=== PATIENT | female | born 1975 | race Caucasian/White ===

== ENCOUNTER 2017-09-18 05:29 | Day surgery (SDC) | payer BC ==
[2017-09-15 16:12] VITALS: BMI 33.7
[~2017-09-18] VITALS: Ht 157.5 cm; Wt 83.4 kg
[2017-09-18] VITALS (12 sets, daily range): BP systolic 103–139; BP diastolic 52–70; PULSE 84–107; RESP 12–20; Ht 157.5 cm; Wt 83.4 kg
[~2017-09-18 05:29] MED LIST: GLIP-95 PO; LISI-313 PO; MTF1000T PO; PRAV20TA63 PO
[2017-09-18] MEDS ORDERED: FENTAnyl 50 MCG/ML VIAL IV PRN ×2 (06:30)
[2017-09-18] MEDS ORDERED: ONDANSETRON 4 MG INJ IV PRN (06:30)
[2017-09-18] MEDS ORDERED: EPHEDrine SULFATE 50 MG/5 ML SYG IV PRN (06:30)
[2017-09-18] MEDS ORDERED: HYDROmorphONE (0.2 MG/ML) 10ML SYG IV PRN (06:30)
[2017-09-18] MEDS ORDERED: LABETALOL HCL 20MG INJ IV PRN (06:30)
[2017-09-18] MEDS ORDERED: MIDAZOLAM 1 MG/ML 2 ML INJ IV PRN (06:30)
[2017-09-18] MEDS ORDERED: hydrALAzine 20 MG INJ IV PRN (06:30)
[2017-09-18] MEDS ORDERED: morphine (1 MG/ML) 10ML SYRINGE IV PRN ×3 (06:30)
[2017-09-18] MEDS ORDERED: ATROPINE 1 MG/10 ML SYRINGE IV PRN (06:30)
[2017-09-18] MEDS ORDERED: OXYCODONE/ACETAMINOPHEN (5/325) TAB PO PRN ×2 (06:30)
[2017-09-18] MEDS ORDERED: MEPERIDINE 25 MG INJ IV PRN (06:30)
[2017-09-18] MEDS ORDERED: DIPHENHYDRAMINE 50 MG INJ IV PRN (06:30)
[2017-09-18] MEDS ORDERED: ROPIVACAINE 0.5 % 30 ML VIAL ONE (06:54)
[2017-09-18] MEDS ORDERED: SODIUM CL BACTERIOSTATIC 30 ML INJ ONE (06:54)
[2017-09-18] MEDS ORDERED: HEPARIN 1000 UNITS/ML 10 ML INJ ONE (06:54)
[2017-09-18] MEDS ORDERED: NEOMYC/POLYMYX/BACIT 30 GM OINT ONE (06:54)
[2017-09-18] MEDS ORDERED: BUPIVACAINE 0.5% (SDV) 30 ML INJ ONE (06:54)
[2017-09-18] MEDS ORDERED: MIDAZOLAM 1 MG/ML 2 ML INJ ONE (07:00)
[2017-09-18] MEDS ORDERED: CEFAZOLIN 1 GM INJ ONE (07:00)
[2017-09-18] MEDS ORDERED: ROCURONIUM 50 MG INJ ONE (07:00)
[2017-09-18] MEDS ORDERED: ONDANSETRON 4 MG INJ ONE (07:00)
[2017-09-18] MEDS ORDERED: SUGAMMADEX SODIUM 200 MG/2 ML VIAL IV ONE (07:00)
[2017-09-18] MEDS ORDERED: DEXAMETHASONE 4 MG/ML 1 ML INJ ONE (07:00)
[2017-09-18] MEDS ORDERED: LIDOCAINE 2% (SDV) 5 ML INJ ONE (07:00)
[2017-09-18] MEDS ORDERED: EPHEDrine SULFATE 50 MG/5 ML SYG ONE (07:00)
[2017-09-18] MEDS ORDERED: PROPOFOL 200 MG INJ ONE (07:00)
[2017-09-18] MEDS ORDERED: FENTAnyl 50 MCG/ML VIAL ONE (07:00)
[2017-09-18] MEDS ORDERED: SUCCINYLCHOLINE CHLORIDE 100 MG/5 ML SYG IV ONE (07:00)
--- NOTE | 2017-09-18 07:16 | HPN ---
Date/Time of Note Date/Time of Note DATE: 09/18/17 TIME: 07:16 Interval H&P Admission Note Pt. seen H&P reviewed: No system changes BARBARA WILLIAM MD Sep 18, 2017 07:16
[2017-09-18] MEDS ORDERED: morphine 2 MG INJ IV PRN (09:30)
[2017-09-18] MEDS: HYDROmorphONE (0.2 MG/ML) 10ML SYG IV PRN ×4 (09:38→09:57)
--- NOTE | 2017-09-18 09:45 | OPR ---
Date/Time of Note Date/Time of Note DATE: 09/18/17 TIME: 09:29 Operative Report Procedure Date: Sep 18, 2017 Preoperative Diagnosis Right knee medial and lateral meniscal tear Right knee lateral femoral condyle full thickness cartilage lesion Postoperative Diagnosis Right knee medial and lateral meniscal tear Right knee lateral femoral condyle full thickness cartilage lesion Right knee loose body Operation/Procedure Performed Right knee arthroscopy with medial and lateral partial meniscectomy Right knee chondroplasty of the medial, lateral and patellofemoral joint Right knee removal of loose body Injection of bone marrow aspirate concentrate to the right knee Surgeon Barbara William MD Nuclear Medicine Medical Director None Anesthesia Type: general Anesthesiologist: ANGELA MARIE MD Tourniquet Time: 40 min at 250 mmHg Estimated Blood Loss: minimal Transfusion none Specimen none Grafts/Implants Bone marrow Aspirate Concentrate (Arthrex Jason) Complications none Pt Condition Post Procedure: stable Disposition: PACU Indications Patient is a 42-year-old female who has right knee pain with ongoing clicking, catching and locking symptoms. MRI reports a medial lateral meniscal tear as well as a full-thickness lateral femoral condyle cartilage lesion. Given her ongoing pain and the lack of improvement with anti-inflammatories, injections and physical therapy patient was indicated for surgery. Risk Note: Patient was explained the risks and benefits of surgery and the patient's newtok language including not limited to infection, bleeding, injury to blood vessels, nerves, ligaments or tendons. Risks of anesthesia, deep vein thrombosis and need for reduce future surgery. Patient acknowledged these risk by signing the surgical consent form. Procedure Description The correct operative site was noted and marked in the preoperative holding area. The patient was then brought back into the operative theater, placed supine on the operative table. Right knee was examined under anesthesia. Range of motion was 0-120. There is no varus or valgus or anterior or posterior instability. There is crepitus noticed at the patellofemoral joint. Tourniquet was then placed on the operative extremity thigh non-sterilely. Patient was then given preoperative antibiotics and then prepped and draped in normal sterile fashion. A timeout was taken and all parties in the room agreed it was the correct patient, correct extremity and correct procedure. Initial incision was made over the right iliac crest using a Jamshidi needle 60 cc of bone marrow aspirate was extracted and sent to the centrifuge for concentration. The iliac crest incision site was then closed with 4-0 Monocryl Steri-Strips and covered with a 4 x 4 and Tegaderm. Standard anterior lateral portal was created and the knee joint was entered with a blunt tipped trocar, followed by 30 arthroscope. Inflow was achieved with a pump and the pressure maintained at approximately 50 mmHg. A routine arthroscopic surgery was performed. Suprapatellar pouch was unremarkable. The undersurface of the patella showed advanced grade 1 chondromalacia The medial and lateral gutters were visualized. There was loose bodies seen. There is an inflamed hypertrophic plica noted in the anterior and superior medial aspect of the knee. The popliteus hiatus was entered and was normal. Lateral compartment was entered and grade 4 was seen on the lateral femoral condyle. 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 The tear extended from the posterior horn to the mid body. Scope was then brought into the intercondylar notch and an anteromedial portal was made. Shaver was brought into the knee and small amount of fat pad and scar tissue was initially gently debrided. The anterior cruciate ligament was intact and probed. The knee was brought into a valgus position and the medial compartment was entered. The articular surface of the medial femoral condyle and medial tibial plateau revealed grade 1 chondromalacia. There was a degenerative posterior horn medial meniscus tear that was debrided gently with a motorized shaver and basket forceps, the posterior horn demonstrated a degenerative tear and fibrillation pattern. The motorized shaver and basket biters were used to smooth the remaining meniscal rim, with care to maintain the peripheral meniscal rim. A probe was introduced and this was carefully probed and was found to be stable. Chondroplasty was then carried out along the weightbearing aspect of the medial femoral condyle, medial tibial plateau, taking care to remove only loose articular cartilage debris and preserve functional articular cartilage. There was approximately a 1 cm combined loose piece of bone and articular cartilage that was stuck in the anterior medial synovium that was removed with an arthroscopic grasper. The lateral compartment was reentered and the loose chondral debris was debrided with motorized shaver. The lateral meniscus tear that was debrided gently with a motorized shaver and basket forceps, the posterior horn demonstrated a degenerative tear and fibrillation pattern. The motorized shaver and basket biters were used to smooth the remaining meniscal rim, with care to maintain the peripheral meniscal rim. There was approximately 2 mm of remaining meniscal rim along the mid body and 3-4 mm along the posterior horn. A probe was introduced and this was carefully probed and was found to be stable. Chondroplasty was then carried out along the weightbearing aspect of the lateral femoral condyle using a [employer] werewolf device, taking care to remove only loose articular cartilage debris and preserve functional articular cartilage. Attention was then directed back to the patella femoral joint and a chondroplasty was carried out along the weightbearing aspect of the trochlea and undersurface of the patella to again remove loose debris and maintain functional active articular cartilage. The knee was then irrigated with additional 2 L of lactated Ringers solution. Excess fluid was then drained. Range of motion was then attempted showing 0- 125 degrees of motion The portal sites were closed with 4-0 Monocryl and Steri-Strips and dressed with Xeroform and triple antibiotic ointment. The knee was then injected with 3 cc of bone marrow aspirate concentrate. A dry sterile dressing was then applied followed by a bulky soft bandage in a thigh-high Jesus stocking. At the completion of the surgery patient had palpable pulses, soft arms and brisk cap refill. The patient tolerated the procedure well and was taken to the PACU without any complications. All sponge and needle counts were correct. Patient will begin pain medicine and 48 hours of antibiotics as well as aspirin 81 mg for the duration of 4 weeks postoperatively right BARBARA WILLIAM MD Sep 18, 2017 9:43 am
== END 2017-09-18 12:05 | disposition home or self-care (01) ==
LOC: SDS 05:29 → SUR 05:29
PROVIDERS: ATTEND Orthopaedic Surgery
DX: M23.200 Derangement of unspecified lateral meniscus due to old tear or injury, right knee (principal); M23.203 Derangement of unspecified medial meniscus due to old tear or injury, right knee; M23.41 Loose body in knee, right knee; E11.9 Type 2 diabetes mellitus without complications; E78.5 Hyperlipidemia, unspecified
CPT/HCPCS: 29880; 82962; J0690; J1100; J1170; J1644; J2250; J2270; J2405; J3010; Z7512; Z7610; J2795

== ENCOUNTER 2019-01-27 08:21 | Emergency (ER) | payer BC ==
[~2019-01-27] VITALS: Ht 160 cm; Wt 88.1 kg
[~2019-01-27 08:21] MED LIST changes: -GLIP-95 PO; +GLIP10TA14 PO
[2019-01-27 08:29] VITALS: Ht 160 cm; Wt 88.1 kg
[2019-01-27] MEDS ORDERED: ONDANSETRON 4 MG INJ IV STA (08:49)
[2019-01-27] MEDS ORDERED: morphine 4 MG/ML VIAL IV STA (08:49)
[2019-01-27 09:17] VITALS: BP 114/78; PULSE 74; RESP 20
[2019-01-27] MEDS ORDERED: IBUP800T48 PO (10:12)
--- NOTE | 2019-01-27 10:19 | ERD ---
ER Documentation Chief Complaint Chief Complaint left side epigastric pain since last night HPI 43-year-old female presents to the emergency room with epigastric and left upper quadrant abdominal pain that started last night. It is sharp and constant. She denies any migratory pain. No chest pain or pressure no pain in the middle of her back. Patient has had episodes of pain like this in the past. ROS All systems reviewed and are negative except as per history of present illness. Medications Home Meds Active Scripts Ibuprofen* (Motrin*) 800 Mg Tab, 800 MG PO Q6H PRN for PAIN AND OR ELEVATED TEMP, #30 TAB Prov:WILIAN LOCKHART MD 01/27/19 Reported Medications Pravastatin Sodium* (Pravastatin Sodium*) 20 Mg Tablet, 20 MG PO HS, TAB 09/15/17 Lisinopril* (Lisinopril*) 5 Mg Tablet, 5 MG PO DAILY, #30 TAB 09/15/17 Glipizide* (Glipizide*) 10 Mg Tablet, 10 MG PO BID, TAB 09/15/17 Metformin* (Glucophage*) 1,000 Mg Tablet, 1000 MG PO BID, #60 TAB 09/15/17 Allergies Allergies: Coded Allergies: No Known Allergy (Unverified , 09/18/17) PMhx/Soc History of Surgery: Yes () Anesthesia Reaction: No Hx Neurological Disorder: Yes (as per patient, 6 mos ago,had left facial droop) Hx Respiratory Disorders: No Hx Cardiac Disorders: Yes (HTN) Hx Psychiatric Problems: No Hx Miscellaneous Medical Probl: No Hx Alcohol Use: No Hx Substance Use: No Hx Tobacco Use: Yes FmHx Family History: No diabetes Physical Exam Vitals Vital Signs Date Temp Pulse Resp B/P (MAP) Pulse Ox O2 O2 Flow FiO2 Time Delivery Rate 01/27/19 74 20 114/78 98 Room Air 09:17 (90) 01/27/19 98.4 85 18 150/87 100 08:29 (108) Physical Exam General: Well developed, well nourished, no acute distress Head: Normocephalic, atraumatic. Eyes: Pupils equally reactive, EOM intact ENT: Moist mucous membranes Neck: Supple, no lymphadenopathy Respiratory: Lungs clear bilaterally, no distress Cardiovascular: RRR, no murmurs, rubs, or gallops Abdominal: Soft, mild tenderness in the epigastrium and left upper quadrant, soft tenderness of the right upper quadrant, negative Karimi sign, no tenderness to McBurney's point : Deferred MSK: No edema, no unilateral swelling, 5/5 strength Neurologic: Alert and oriented, moving all extremities, normal speech, no focal weakness, no cerebellar signs Skin: No rash Psych: Normal mood Result Diagram: 01/27/19 0909 01/27/19 0909 Results 24 hrs Laboratory Tests Test 01/27/19 09:09 White Blood Count 11.5 10^3/ul Red Blood Count 4.38 10^6/ul Hemoglobin 12.9 g/dl Hematocrit 38.7 % Mean Corpuscular Volume 88.4 fl Mean Corpuscular Hemoglobin 29.5 pg Mean Corpuscular Hemoglobin Concent 33.3 g/dl Red Cell Distribution Width 13.0 % Platelet Count 313 10^3/UL Mean Platelet Volume 10.4 fl Immature Granulocytes % 0.400 % Neutrophils % 73.8 % Lymphocytes % 19.7 % Monocytes % 4.5 % Eosinophils % 1.3 % Basophils % 0.3 % Nucleated Red Blood Cells % 0.0 /100WBC Immature Granulocytes # 0.050 10^3/ul Neutrophils # 8.4 10^3/ul Lymphocytes # 2.3 10^3/ul Monocytes # 0.5 10^3/ul Eosinophils # 0.2 10^3/ul Basophils # 0.0 10^3/ul Nucleated Red Blood Cells # 0.0 10^3/ul Sodium Level 143 mmol/L Potassium Level 4.5 mmol/L Chloride Level 104 mmol/L Carbon Dioxide Level 25 mmol/L Anion Gap 14 Blood Urea Nitrogen 9 mg/dl Creatinine 0.69 mg/dl Est Glomerular Filtrat Rate mL/min > 60 mL/min Glucose Level 170 mg/dl Calcium Level 9.4 mg/dl Total Bilirubin 0.2 mg/dl Direct Bilirubin 0.00 mg/dl Indirect Bilirubin 0.2 mg/dl Aspartate Amino Transf (AST/SGOT) 34 IU/L Alanine Aminotransferase (ALT/SGPT) 39 IU/L Alkaline Phosphatase 91 IU/L Total Protein 8.0 g/dl Albumin 4.5 g/dl Globulin 3.50 g/dl Albumin/Globulin Ratio 1.28 Lipase 72 U/L Serum HCG, Qualitative NEGATIVE Current Medications Medications Dose Sig/Angie Start Time Status Last (Trade) Ordered Route PRN Stop Time Admin Dose Reason Admin Morphine 4 mg ONCE STAT 01/27/19 DC 01/27/19 Sulfate IV 08:49 01/27/19 09:11 (morphine) 08:51 Ondansetron 4 mg ONCE STAT 01/27/19 DC 01/27/19 HCl (Zofran IV 08:49 01/27/19 09:10 Inj) 08:51 Procedures/MDM EKG, MONITORS, & DIAGNOSTIC IMAGING: CT abdomen and pelvis: IMPRESSION: No evidence of urolithiasis, obstructive uropathy, diverticulitis or appendic itis. Enlarged fatty liver. 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 Cholelithiasis. US GB IMPRESSION: Moderately distended gallbladder with cholelithiasis. Fatty liver. LAB INTERPRETATION: I reviewed the laboratory testing and it shows no evidence of acute process MEDICAL DECISION MAKING: Patient presents with epigastric abdominal pain. Differential exists and includ es biliary colic, lower concern for acute cholecystitis, consider diverticulitis. Low concern for bowel obstruction. No signs or symptoms concerning for cardiac etiology or pulmonary etiology. ER COURSE: * The patient was given pain control medication. Her laboratory testing and diagnostic imaging is only revealing for gallstones. No signs of acute cholecystitis. * At this point the patient's pain is well controlled. No evidence of obstruction or persistent pain. Outpatient follow-up with GI or general surgery would be appropriate. This is possibly related to biliary colic. The patient was advised to return for any uncontrolled pain or fever. CONSULTATION: None DISPOSITION PLAN: The patient does not have an identifiable emergent medical condition that warrants inpatient hospitalization at this time. The patient is deemed safe for discharge with outpatient follow-up. We discussed follow up with the patient's primary care doctor within 24 to 48 hours as needed. We also discussed return to the emergency room for worsening symptoms or worsening condition. Outpatient referral: General surgery Discharge Medications: Motrin Departure Diagnosis: Primary Impression: Epigastric pain Additional Impression: Biliary colic Condition: Stable Patient Instructions: Biliary Colic With Gallstone (Confirmed), Epigastric Pain (Uncertain Cause) Referrals: Krishna NAYLOR SAMUEL MD [facility] YOU HAVE RECEIVED A MEDICAL SCREENING EXAM AND THE RESULTS INDICATE THAT YOU DO NOT HAVE A CONDITION THAT REQUIRES URGENT TREATMENT IN THE EMERGENCY DEPARTMENT. FURTHER EVALUATION AND TREATMENT OF YOUR CONDITION CAN WAIT UNTIL YOU ARE SEEN IN YOUR DOCTORS OFFICE WITHIN THE NEXT 1-2 DAYS. IT IS YOUR RESPONSIBILITY TO MAKE AN APPOINTMENT FOR FOLOW-UP CARE. IF YOU HAVE A PRIMARY DOCTOR --you should call your primary doctor and schedule an appointment IF YOU DO NOT HAVE A PRIMARY DOCTOR YOU CAN CALL OUR PHYSICIAN REFERRAL HOTLINE AT IF YOU CAN NOT AFFORD TO SEE A PHYSICIAN YOU CAN CHOSE FROM THE FOLLOWING [facility] [address] [facility] [address] [facility] [address] [facility] [address] [facility] [address] [facility] [facility] [address] [facility]. [facility] YOU HAVE RECEIVED A MEDICAL SCREENING EXAM AND THE RESULTS INDICATE THAT YOU DO NOT HAVE A CONDITION THAT REQUIRES URGENT TREATMENT IN THE EMERGENCY DEPARTMENT. FURTHER EVALUATION AND TREATMENT OF YOUR CONDITION CAN WAIT UNTIL YOU ARE SEEN IN YOUR DOCTORS OFFICE WITHIN THE NEXT 1-2 DAYS. IT IS YOUR RESPONSIBILITY TO MAKE AN APPOINTMENT FOR FOLOW-UP CARE. IF YOU HAVE A PRIMARY DOCTOR --you should call your primary doctor and schedule and appointment IF YOU DO NOT HAVE A PRIMARY DOCTOR YOU CAN CALL OUR PHYSICIAN REFERRAL HOTLINE AT . IF YOU CAN NOT AFFORD TO SEE A PHYSICIAN YOU CAN CHOSE FROM THE FOLLOWING [facility] INSTITUTIONS: [facility] [address] [place] [address] [facility] [address] [place] [address] [facility] + [facility] [address] [place] [address] Additional Instructions: Call your primary care doctor TOMORROW for an appointment during the next 1 WEEK.Tell the junior legal secretary that you were referred from this facility.See the doctor sooner or return here if your condition worsens before your appointment time. Return sooner for uncontrolled pain, fever. WILIAN LOCKHART MD Jan 27, 2019 10:19
== END 2019-01-27 10:55 | disposition home or self-care (01) ==
LOC: E/R 08:21
DX: K80.50 Calculus of bile duct without cholangitis or cholecystitis without obstruction (principal); I10 Essential (primary) hypertension; E11.9 Type 2 diabetes mellitus without complications; Z79.84 Long term (current) use of oral hypoglycemic drugs; Z87.891 Personal history of nicotine dependence
CPT/HCPCS: 36415; 74176; 76705; 80053; 83690; 84703; 85025; 96374; 96375; 99285; J2270; J2405